=== PATIENT | male | born 1980 | race Caucasian/White ===

== ENCOUNTER 2024-08-20 20:41 | Emergency (ER) | payer MEDICAID ==
[~2024-08-20] VITALS: Ht 172.7 cm; Wt 74.8 kg
[~2024-08-20 20:41] MED LIST: ACET-2154 PO; HYDR-3972 PO; ONDA4TAB8 SL
[2024-08-20] MEDS ORDERED: KETOROLAC TROMETHAMINE 15 MG INJ IVP ONE (21:15)
[2024-08-20] MEDS ORDERED: diphenhydrAMINE 50 MG/1 ML VIAL IV ONE (21:15)
[2024-08-20] MEDS ORDERED: PROCHLORPERAZINE EDISYLATE 10 MG/2 ML VIAL IV ONE (21:15)
[2024-08-20] MEDS: SUMATRIPTAN SUCCINATE 6 MG/0.5 ML VIAL SQ ONE (21:21)
[2024-08-20] MEDS ORDERED: TETRACAINE HCL 0.5% OPHT DROP 2 ML BOTTLE ONE (21:53)
[2024-08-20] MEDS: TETRACAINE HCL 0.5% OPHT DROP 2 ML BOTTLE OP ONE (21:55)
[2024-08-20 23:34] VITALS: BP 125/81; O2SAT 97
== END 2024-08-20 22:45 | disposition home or self-care (01) ==
LOC: ER 20:41
DX: R51.9 Headache, unspecified (principal); R11.0 Nausea; F17.200 Nicotine dependence, unspecified, uncomplicated; H53.149 Visual discomfort, unspecified
CPT/HCPCS: 99285; 70450; 96372; J3030; A4606; A4663